=== PATIENT | female | born 2000 | race American Indian/Alaskan Native ===

== ENCOUNTER 2019-04-12 16:27 | Emergency (ER) | payer SELFPAY ==
--- NOTE | 2019-04-12 17:07 | Event Note ---
ED Screening Note Date of service: 04/12/19 Time: 17:05 ED Screening Note: 18 y o female presents with abd pain with vomitting and diarheaa x 2weeks states no relief with meds given in [place] This initial assessment/diagnostic orders/clinical plan/treatment(s) is/are subject to change based on patients health status, clinical progression and re- assessment by fellow clinical providers in the ED. Further treatment and workup at subsequent clinical providers discretion. Patient/guardian urged not to elope from the ED as their condition may be serious if not clinically assessed and managed. Initial orders include: ua,upt cbc,bmp,
[2019-04-12 17:54] LABS: Basophils % (Auto) 0.4 % (0.0-1.8); Eosinophils # (Auto) 0.5 K/mm3 (0.0-0.4); Eosinophils % (Auto) 4.2 % (0.0-4.3); Hemoglobin 12.7 gm/dl (10.1-14.3); Lymphocytes # (Auto) 0.9 K/mm3 (1.2-5.4); Lymphocytes % (Auto) 6.9 % (13.4-35.0); Mean Corpuscular HGB Conc 34 % (30-34); Mean Corpuscular Volume 73 fl (79-97); Monocytes # (Auto) 1.1 K/mm3 (0.0-0.8); Monocytes % (Auto) 8.3 % (0.0-7.3); Platelet Count 421 K/mm3 (140-440); Red Blood Count 5.22 M/mm3 (3.65-5.03); Red Cell Distribution Width 18.3 % (13.2-15.2)
[2019-04-12 18:02] LABS: BUN/Creatinine Ratio 16; Blood Urea Nitrogen 11 mg/dL (7-17); Hemolysis Index 32
[2019-04-12 19:03] LABS: Color,Urine Yellow (Yellow)
[2019-04-12 19:04] LABS: Bacteria,Urine 1+ /HPF (Negative); Bilirubin,Urine NEG (Negative); Blood,Urine MOD (Negative); Protein,Urine <15 mg/dL mg/dL (Negative); Urobilinogen,Urine < 2.0 mg/dL (<2.0)
[2019-04-12 19:20] LABS: HCG Qualitative,Urine Negative (Negative)
== END 2019-04-12 20:00 | disposition left against medical advice (07) ==
LOC: ED 16:27
DX: R19.7 Diarrhea, unspecified (principal); Z53.21 Procedure and treatment not carried out due to patient leaving prior to being seen by health care provider
CPT/HCPCS: 36415; 80048; 81001; 81025; 85025

== ENCOUNTER 2019-04-18 15:37 | Emergency (ER) | payer SELFPAY ==
[2019-04-18 15:43] VITALS: BP 123/95
[2019-04-18] MEDS ORDERED: predniSONE 20 MG TAB PO ONE (15:53)
[2019-04-18] MEDS ORDERED: IPRATROPIUM/ALBUTEROL SULFATE 3 ML AMPUL.NEB IH ONE (15:53)
--- NOTE | 2019-04-18 15:53 | Event Note ---
ED Screening Note Date of service: 04/18/19 Time: 15:49 ED Screening Note: This is a 18 y.o. F. that presents to the ER with wheezing and SOB that started today. PMH of asthma Reports URI symptoms for a few days which she think triggered asthma. Using inhaler and neb treatment. + nonproductive cough - fever, chills, n/v/d, or myalgia This initial assessment/diagnostic orders/clinical plan/treatment(s) is/are subject to change based on patients health status, clinical progression and re- assessment by fellow clinical providers in the ED. Further treatment and workup at subsequent clinical providers discretion. Patient/guardian urged not to elope from the ED as their condition may be serious if not clinically assessed and managed. Initial orders include: Duoneb and prednisone
--- NOTE | 2019-04-18 16:11 | Emergency Department Report ---
ED Shortness of Breath HPI - General Chief Complaint: Adult Asthma Stated Complaint: ASTHMA ATTACK Time Seen by Provider: 04/18/19 15:49 Source: patient Mode of arrival: Ambulatory Limitations: No Limitations - History of Present Illness Initial Comments: 18-year-old female with history of asthma presents to ED with wheezing since yesterday. Patient reports a nonproductive cough. Denies fever. Patient reports no improvement with albuterol inhaler at home. Unable to use nebulizer machine at home due to seeing parts of the machine. Complaint: "asthma attack" -: Last night Severity: moderate Consistency: constant Improves With: nothing Worsens With: exertion Known History Of: asthma Context: recent URI Associated Symptoms: cough Treatments Prior to Arrival: bronchodilator - Related Data Home Oxygen Therapy: No Previous Rx's Medication Instructions Recorded Last Taken Type Albuterol Sulfate [Proventil Hfa] 2 puff IH Q4HR PRN #1 hfa.aer.ad 04/18/19 Unknown Rx Benzonatate [Tessalon Perles] 100 mg PO Q8HR PRN #20 capsule 04/18/19 Unknown Rx predniSONE [Deltasone] 50 mg PO QDAY #5 tab 04/18/19 Unknown Rx Allergies Allergy/AdvReac Type Severity Reaction Status Date / Time codeine Allergy Hives Verified 04/12/19 16:36 magnesium sulfate AdvReac Unknown Verified 04/12/19 16:36 Penicillins AdvReac Anaphylaxis Verified 04/12/19 16:36 ED Review of Systems ROS: Stated complaint: ASTHMA ATTACK Other details as noted in HPI Comment: All other systems reviewed and negative Constitutional: denies: chills, fever Respiratory: cough, wheezing ED Past Medical Hx - Past Medical History Previous Medical History?: Yes Hx Asthma: Yes - Surgical History Past Surgical History?: No - Social History Smoking Status: Never Smoker Substance Use Type: None - Medications Home Medications: Home Medications Medication Instructions Recorded Confirmed Last Taken Type Albuterol Sulfate [Proventil Hfa] 2 puff IH Q4HR PRN #1 hfa.aer.ad 04/18/19 Unknown Rx Benzonatate [Tessalon Perles] 100 mg PO Q8HR PRN #20 capsule 04/18/19 Unknown Rx predniSONE [Deltasone] 50 mg PO QDAY #5 tab 04/18/19 Unknown Rx ED Physical Exam - General Limitations: No Limitations General appearance: alert, in no apparent distress - Head Head exam: Present: atraumatic, normocephalic - Eye Eye exam: Present: normal appearance - ENT ENT exam: Present: mucous membranes moist - Neck Neck exam: Present: normal inspection - Respiratory Respiratory exam: Present: wheezes - Cardiovascular Cardiovascular Exam: Present: normal rhythm, tachycardia - Extremities Exam Extremities exam: Present: normal inspection - Neurological Exam Neurological exam: Present: alert, oriented X3 - Psychiatric Psychiatric exam: Present: normal affect, normal mood - Skin Skin exam: Present: warm, dry, intact, normal color ED Course Vital Signs 04/18/19 04/18/19 15:41 16:01 Temperature 98.3 F Pulse Rate 112 H Respiratory 18 18 Rate Blood Pressure 123/95 O2 Sat by Pulse 94 Oximetry - Reevaluation(s) Reevaluation #1: 04/18/19 16:51 Pt feeling much better. Wheezing resolved. ED Medical Decision Making - Medical Decision Making 18-year-old female with acute asthma exacerbation. Patient given prednisone and albuterol nebulizer treatment. Wheezing currently resolved. Patient felt much better at this time. Outpatient follow-up advised. Return precautions given. - Differential Diagnosis asthma Critical care attestation.: If time is entered above; I have spent that time in minutes in the direct care of this critically ill patient, excluding procedure time. ED Disposition Clinical Impression: Acute asthma exacerbation Disposition: DC-01 TO HOME OR SELFCARE Is pt being admited?: No Condition: Stable Instructions: Asthma (ED) Prescriptions: predniSONE [Deltasone] 50 mg PO QDAY #5 tab Albuterol Sulfate [Proventil Hfa] 2 puff IH Q4HR PRN #1 hfa.aer.ad PRN Reason: Wheezing Benzonatate [Tessalon Perles] 100 mg PO Q8HR PRN #20 capsule PRN Reason: Cough Referrals: PRIMARY CARE [Primary Care Provider] - 3-5 Days [facility] [Provider Group] - 3-5 Days Time of Disposition: 16:52
== END 2019-04-18 17:04 | disposition home or self-care (01) ==
LOC: ED 15:37
DX: J45.21 Mild intermittent asthma with (acute) exacerbation (principal); Z88.6 Allergy status to analgesic agent; Z88.8 Allergy status to other drugs, medicaments and biological substances; Z88.0 Allergy status to penicillin
CPT/HCPCS: 99282; J7512

== ENCOUNTER 2019-04-19 21:49 | Emergency (ER) | payer SELFPAY ==
[2019-04-19 21:55] VITALS: BP 151/79
[2019-04-19] MEDS ORDERED: dexAMETHasone 4 MG/ML VIAL IM ONE (23:47)
--- NOTE | 2019-04-19 23:57 | Emergency Department Report ---
ED Asthma HPI - General Chief Complaint: Dyspnea/Respdistress Stated Complaint: DIFFICULTY IN BREATHING Time Seen by Provider: 04/19/19 23:05 Source: patient Mode of arrival: Ambulatory Limitations: No Limitations - History of Present Illness Initial Comments: 18-year-old female with a known history of asthma since emergency department complaining of having an asthma exacerbation about 1-2 hours prior to arrival. She was seen here yesterday for asthma discharged with prescriptions but states that at [facility] and she has not yet picked him up. Currently she states that her breathing is much improved she reports no fever, chills, sweats no chest pain or palpitations no nausea or vomiting no hemoptysis no hematemesis or hematochezia. She denies any chest trauma. MD Complaint: wheezing -: Sudden, This evening Severity: mild - Related Data Previous Rx's Medication Instructions Recorded Last Taken Type Albuterol Sulfate [Proventil Hfa] 2 puff IH Q4HR PRN #1 hfa.aer.ad 04/18/19 Unknown Rx Benzonatate [Tessalon Perles] 100 mg PO Q8HR PRN #20 capsule 04/18/19 Unknown Rx Allergies Allergy/AdvReac Type Severity Reaction Status Date / Time codeine Allergy Hives Verified 04/12/19 16:36 magnesium sulfate AdvReac Unknown Verified 04/12/19 16:36 Penicillins AdvReac Anaphylaxis Verified 04/12/19 16:36 ED Review of Systems ROS: Stated complaint: DIFFICULTY IN BREATHING Other details as noted in HPI ED Past Medical Hx - Past Medical History Previous Medical History?: Yes Hx Asthma: Yes - Surgical History Past Surgical History?: Yes - Social History Smoking Status: Never Smoker Substance Use Type: None - Medications Home Medications: Home Medications Medication Instructions Recorded Confirmed Last Taken Type Albuterol Sulfate [Proventil Hfa] 2 puff IH Q4HR PRN #1 hfa.aer.ad 04/18/19 Unknown Rx Benzonatate [Tessalon Perles] 100 mg PO Q8HR PRN #20 capsule 04/18/19 Unknown Rx ED Physical Exam - General Limitations: No Limitations ED Course Vital Signs 04/19/19 04/19/19 21:54 22:39 Temperature 98.0 F Pulse Rate 120 H Respiratory 20 20 Rate Blood Pressure 151/79 O2 Sat by Pulse 91 96 Oximetry ED Medical Decision Making - Medical Decision Making Management he was evaluated by department today for reemergence of asthma exacerbation that she was initially seen for on yesterday but 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 Currently his symptoms are resolved she is speaking in full sentences no acute distress ultra sound sound sound judgment. Heart rate during the examination was in the 90s. I discussed with her the importance of compliance and follow up at the pharmacy to obtain the medication that was prescribed to her she'll be given a some Decadron and advised to hold on the prednisone that was prescribed who is well. Differential Diagnosis: Cough, wheezing, asthma exacerbation, pneumonia, seasonal allergies, viral syndrome, Pneumothorax. Rationale: Given the history of cough, difficulty breathing, wheeze and history of asthma, the patients symptoms may be attributed to either viral syndrome, pneumonia, acute asthma exacerbation or pneumothorax. Most likely, this represents an acute asthma exacerbation. 1) steroids will be given, with re-assessments between nebulized treatments. No bronchodilator was given at the time as there is no wheezing present, no dyspnea 2) If worsening or persistent symptoms occur, the patient may require critical care management or admission to the hospital. Critical care attestation.: If time is entered above; I have spent that time in minutes in the direct care of this critically ill patient, excluding procedure time. ED Disposition Clinical Impression: Acute asthma exacerbation, Asthma Disposition: DC-01 TO HOME OR SELFCARE Is pt being admited?: No Does the pt Need Aspirin: No Condition: Stable Instructions: Asthma (ED), Reactive Airways Disease (ED) Additional Instructions: Please fill the prescriptions that were provided to you on yesterday. Home Instructions: Take medicines as directed by your caregiver. Visit your PMD if: You have wheezing, shortness of breath, or a cough even if taking medicine to prevent attacks. You have thickening of sputum. Your sputum changes from clear or white to yellow, green, padilla, or bloody. You have any problems that may be related to the medicines you are taking (such as a rash, itching, swelling, or trouble breathing). You are using a reliever medicine more than 2-3 times per week. Visit the ER if: You are short of breath even at rest or when doing very little physical activity. You develop difficulty eating, drinking, or talking due to asthma symptoms. You have chest pain or you feel that your heart is beating fast. You are lightheaded, dizzy, faint or have bluish lips or fingernails. You have a fever or persistent symptoms for more than 2-3 days or symptoms suddenly get worse. You seem to be getting worse and are unresponsive to treatment during an asthma attack. Referrals: [facility] [Provider Group] - 2-3 Days
== END 2019-04-20 01:04 | disposition home or self-care (01) ==
LOC: ED 21:49
DX: J45.21 Mild intermittent asthma with (acute) exacerbation (principal)
CPT/HCPCS: 96372; 99282; J1100

== ENCOUNTER 2019-05-24 20:09 | Emergency (ER) | payer SELFPAY ==
[2019-05-24] MEDS ORDERED: methylPREDNISolone Sod Succinate 125 MG/2 ML INJ ONE (20:24)
[2019-05-24] MEDS ORDERED: methylPREDNISolone Sod Succinate 125 MG/2 ML INJ IV ONE (20:25)
[2019-05-24] MEDS ORDERED: IPRATROPIUM 0.02% NEBU 2.5 ML IH ONE (20:25)
[2019-05-24] MEDS ORDERED: ALBUTEROL 2.5 MG/3 ML NEBU IH ONE (20:25)
--- NOTE | 2019-05-24 20:30 | Emergency Department Report ---
ED Asthma HPI - General Chief Complaint: Dyspnea/Respdistress Stated Complaint: SEUN Time Seen by Provider: 05/24/19 20:19 Source: patient, EMS Mode of arrival: Stretcher Limitations: No Limitations - History of Present Illness Initial Comments: Patient is a 18-year-old female presents emergency room with complaints of an asthma exacerbation for a week. She has associated productive cough with yellow sputum production. She has shortness of breath and wheezing. She denies any fever or chest pain. She has been using her albuterol inhaler. The patient states she has been using nebulizer treatments 5 times a day. pt had already given herself 5 mg albuterol at home. The ambulance gave her 2.5 of albuterol and 0.3 of epinephrine. She also has a past medical history of eczema. She states that she has an allergy to codeine, magnesium sulfate, penicillin. - Related Data Previous Rx's Medication Instructions Recorded Last Taken Type Albuterol Sulfate [Proventil Hfa] 2 puff IH Q4HR PRN #1 hfa.aer.ad 04/18/19 Unknown Rx Benzonatate [Tessalon Perles] 100 mg PO Q8HR PRN #20 capsule 04/18/19 Unknown Rx Azithromycin [Zithromax TAB] 250 mg PO QDAY 5 Days #6 tablet 05/24/19 Unknown Rx Benzonatate [Tessalon Perles] 100 mg PO Q8HR PRN #14 capsule 05/24/19 Unknown Rx predniSONE [Deltasone] 20 mg PO QDAY 6 Days #12 tab 05/24/19 Unknown Rx Allergies Allergy/AdvReac Type Severity Reaction Status Date / Time codeine Allergy Hives Verified 04/12/19 16:36 magnesium sulfate AdvReac Unknown Verified 04/12/19 16:36 Penicillins AdvReac Anaphylaxis Verified 04/12/19 16:36 ED Review of Systems ROS: Stated complaint: SEUN Other details as noted in HPI Comment: All other systems reviewed and negative ED Past Medical Hx - Past Medical History Previous Medical History?: Yes Hx Asthma: Yes - Social History Smoking Status: Never Smoker Substance Use Type: None - Medications Home Medications: Home Medications Medication Instructions Recorded Confirmed Last Taken Type Albuterol Sulfate [Proventil Hfa] 2 puff IH Q4HR PRN #1 hfa.aer.ad 04/18/19 Unknown Rx Benzonatate [Tessalon Perles] 100 mg PO Q8HR PRN #20 capsule 04/18/19 Unknown Rx Azithromycin [Zithromax TAB] 250 mg PO QDAY 5 Days #6 tablet 05/24/19 Unknown Rx Benzonatate [Tessalon Perles] 100 mg PO Q8HR PRN #14 capsule 05/24/19 Unknown Rx predniSONE [Deltasone] 20 mg PO QDAY 6 Days #12 tab 05/24/19 Unknown Rx ED Physical Exam - General Limitations: No Limitations General appearance: alert, in no apparent distress - Head Head exam: Present: atraumatic, normocephalic - Eye Eye exam: Present: normal appearance - ENT ENT exam: Present: mucous membranes moist - Respiratory Respiratory exam: Present: respiratory distress (moderate), wheezes (bilaterally, inspiratory and expiratory ), accessory muscle use, decreased breath sounds, prolonged expiratory. Absent: rales, rhonchi, stridor, chest wall tenderness - Cardiovascular Cardiovascular Exam: Present: normal rhythm, tachycardia, normal heart sounds. Absent: systolic murmur, diastolic murmur, rubs, gallop - Neurological Exam Neurological exam: Present: alert, oriented X3 - Psychiatric Psychiatric exam: Present: normal affect, normal mood - Skin Skin exam: Present: warm, dry, other (hyperpigmentation present to the BUE consistent with eczema) ED Course Vital Signs 05/24/19 05/24/19 05/24/19 20:10 20:32 21:49 Temperature 98.2 F Pulse Rate Pulse Rate [ 85 Posterior] Respiratory 20 Rate Respiratory 18 Rate [Posterior ] Blood Pressure [Right] O2 Sat by Pulse 93 Oximetry 05/24/19 05/24/19 23:18 23:44 Temperature 97.6 F Pulse Rate 109 H 102 H Pulse Rate [ Posterior] Respiratory 20 Rate Respiratory Rate [Posterior ] Blood Pressure 117/73 [Right] O2 Sat by Pulse 97 97 Oximetry ED Medical Decision Making - Lab Data Result diagrams: 05/24/19 20:56 05/24/19 20:56 Labs 05/24/19 05/24/19 05/24/19 20:56 20:56 20:56 WBC 18.9 H RBC 5.29 H Hgb 12.6 Hct 39.8 MCV 75 L MCH 24 L MCHC 32 RDW 18.8 H Plt Count 496 H Eos % (Auto) Chemist Biological Add Manual Diff Complete Total Counted 100 Seg Neuts % (Manual) 44.0 Band Neutrophils % 0 Lymphocytes % (Manual) 14.0 Reactive Lymphs % (Man) 0 Monocytes % (Manual) 8.0 H Eosinophils % (Manual) 33.0 H Basophils % (Manual) 1.0 Metamyelocytes % 0 Myelocytes % 0 Promyelocytes % 0 Blast Cells % 0 Nucleated RBC % Not Reportable Seg Neutrophils # Man 8.3 H Band Neutrophils # 0.0 Lymphocytes # (Manual) 2.6 Abs React Lymphs (Man) 0.0 Monocytes # (Manual) 1.5 H Eosinophils # (Manual) 6.2 H Basophils # (Manual) 0.2 H Metamyelocytes # 0.0 Myelocytes # 0.0 Promyelocytes # 0.0 Blast Cells # 0.0 WBC Morphology Not Reportable Hypersegmented Neuts Not Reportable Hyposegmented Neuts Not Reportable Hypogranular Neuts Not Reportable Smudge Cells Not Reportable Toxic Granulation Not Reportable Toxic Vacuolation Not Reportable Dohle Bodies Not Reportable Pelger-Huet Anomaly Not Reportable Zak Rods Not Reportable Platelet Estimate Consistent w auto Clumped Platelets Not Reportable Plt Clumps, EDTA Not Reportable Large Platelets Not Reportable Giant Platelets Not Reportable Platelet Satelliting Not Reportable Plt Morphology Comment Not Reportable RBC Morphology Normal Dimorphic RBCs Not Reportable Polychromasia Not Reportable Hypochromasia Not Reportable Poikilocytosis Not Reportable Anisocytosis Not Reportable Microcytosis Not Reportable Macrocytosis Not Reportable Spherocytes Not Reportable Pappenheimer Bodies Not Reportable Sickle Cells Not Reportable Target Cells Not Reportable Tear Drop Cells Not Reportable Ovalocytes Not Reportable Helmet Cells Not Reportable [place] Bodies Not Reportable Paoli Rings Not Reportable [place] Cells Not Reportable Bite Cells Not Reportable Crenated Cell Not Reportable Elliptocytes Not Reportable Acanthocytes (Spur) Not Reportable Rouleaux Not Reportable Hemoglobin C Crystals Not Reportable Schistocytes Not Reportable Malaria parasites Not Reportable Arash Bodies Not Reportable Hem Pathologist Commnt No Sodium 141 Potassium 3.6 Chloride 106.5 Carbon Dioxide 21 L Anion Gap 17 BUN 7 Creatinine 0.7 Estimated GFR > 60 BUN/Creatinine Ratio 10 Glucose 142 H Calcium 9.0 HCG, Qual Negative - Radiology Data Radiology results: report reviewed CXR with no significant abnormality - Medical Decision Making Patient is a 18-year-old female presents emergency room with complaints of an a sthma exacerbation for a week. She has associated productive cough with yellow sputum production. She has shortness of breath and wheezing. She denies any fever or chest pain. She has been using her albuterol inhaler. The patient states she has been using nebulizer treatments 5 times a day. pt had already given herself 5 mg albuterol at home. The ambulance gave her 2.5 of albuterol and 0.3 of epinephrine. She also has a past medical history of eczema. She states that she has an allergy to codeine, magnesium sulfate, penicillin. vitals with mild hypoxia which improved upon repeating. labs with elevated WBC and slightly increased PLT, could be related to recent steroid administration. CXR with no acute process. pt given 1L IVF, continuous neb tx, and steroids. after neb tx and steroids pt breath sounds significantly improved, pt was ambulated in the emergency department and maintained oxygen saturation of 97% on RA, and states she was feeling much better. pt will be treated for acute bronchitis. pt given prednisone, azithromycin and tessalon perles. advised pt to please take m edication as prescribed. Please continue to use your nebulizer treatments 3-4 times a day. Follow up with your primary care doctor in the next 2-3 days for reexamination. Return to the emergency room immediately for any new or worsening symptoms. Critical care attestation.: If time is entered above; I have spent that time in minutes in the direct care of this critically ill patient, excluding procedure time. ED Disposition Clinical Impression: Asthma Qualifiers: Asthma severity: unspecified severity Asthma persistence: unspecified Asthma complication type: with acute exacerbation Qualified Code(s): J45.901 - Unspecified asthma with (acute) exacerbation Acute bronchitis Qualifiers: Bronchitis organism: unspecified organism Qualified Code(s): J20.9 - Acute bronchitis, unspecified Disposition: DC-01 TO HOME OR SELFCARE Is pt being admited?: No Does the pt Need Aspirin: No Condition: Stable Instructions: Asthma (ED), Acute Bronchitis (ED) Additional Instructions: Please take medication as prescribed. Please continue to use your nebulizer treatments 3-4 times a day. Follow up with your primary care doctor in the next 2-3 days for reexamination. Return to the emergency room immediately for any new or worsening symptoms. Prescriptions: predniSONE [Deltasone] 20 mg PO QDAY 6 Days #12 tab Benzonatate [Tessalon Perles] 100 mg PO Q8HR PRN #14 capsule PRN Reason: cough Azithromycin [Zithromax TAB] 250 mg PO QDAY 5 Days #6 tablet Referrals: LIZ HENRY MD [Primary Care Provider] - 2-3 Days Time of Disposition: 23:22 Print Language: CENTRAL AFRICAN
[2019-05-24] MEDS ORDERED: SODIUM CHLORIDE 0.9% 1000 ML 1,000 ML IV ONE (20:40)
[2019-05-24 21:09] LABS: Hematocrit 39.8 % (30.3-42.9); Hemoglobin 12.6 gm/dl (10.1-14.3); Mean Corpuscular HGB Conc 32 % (30-34); Mean Corpuscular Volume 75 fl (79-97); Platelet Count 496 K/mm3 (140-440); Red Blood Count 5.29 M/mm3 (3.65-5.03); Red Cell Distribution Width 18.8 % (13.2-15.2)
[2019-05-24 21:29] LABS: BUN/Creatinine Ratio 10; Blood Urea Nitrogen 7 mg/dL (7-17); Hemolysis Index 15
[2019-05-24 22:22] LABS: Total Cells Counted 100
[2019-05-24 22:23] LABS: Platelet Estimate Consistent w Auto; RBC Morphology Normal
--- NOTE | 2019-05-24 22:33 | XRay Report ---
CHEST PA AND LATERAL VIEWS INDICATION: productive cough, SOB, wheezing x1week. COMPARISON: None. FINDINGS: Support devices: None. Heart: Within normal limits. Lungs/Pleura: No acute pulmonary or pleural findings. IMPRESSION: 1. No significant abnormality. Signer Name: Willy Stewart MD Signed: 05/24/2019 10:29 PM Workstation Name: [id number]
[2019-05-24 23:47] VITALS: BP 117/73
== END 2019-05-24 23:45 | disposition home or self-care (01) ==
LOC: ED 20:09
DX: J45.909 Unspecified asthma, uncomplicated (principal); J20.9 Acute bronchitis, unspecified; Z79.899 Other long term (current) drug therapy; Z88.5 Allergy status to narcotic agent; Z88.8 Allergy status to other drugs, medicaments and biological substances; Z88.0 Allergy status to penicillin
CPT/HCPCS: 36415; 71046; 80048; 84703; 85007; 85025; 94644; 96374; 99285; J2930; J7030